=== PATIENT | female | born 1950 | race Caucasian/White ===

== ENCOUNTER 2021-02-13 18:26 | Emergency (ER) | payer MEDICARE ==
[2021-02-13 19:30] LABS: EOS # 0.1 (0.04-0.40); EOS % 0.9 % (1.0-5.0); HEMATOCRIT 43.7 % (37.0-47.0); HEMOGLOBIN 14.3 g/dL (12.5-16.0); LYMPH# 1.9 (1.50-4.00); MEAN CELL VOLUME 87 fl (78-100); MEAN CORPUSCULAR HEMOGLOBIN 29 pg (27-31); MEAN CORPUSCULAR HGB CONC 33 g/dL (33-37); MEAN PLATELET VOLUME 9.9 fl (7.4-10.4); MONO # 0.7 (0.20-0.80); NEU # 4.2 (1.40-6.50); PLATELET COUNT 228 K/mm3 (130-400); RED BLOOD COUNT 5.02 M/mm3 (4.10-5.30); WHITE BLOOD COUNT 6.8 K/mm3 (4.8-10.8)
[2021-02-13 19:41] LABS: ALBUMIN 4.2 g/dL (3.4-4.8); POTASSIUM 3.5 mmol/L (3.5-5.1); SODIUM 143 mmol/L (136-145)
[2021-02-13 19:42] LABS: CALCIUM 9.5 mg/dL (8.3-10.5)
[2021-02-13 19:43] LABS: GLUCOSE 107 mg/dL (65-105)
[2021-02-13 19:44] LABS: CARBON DIOXIDE 26 mmol/L (23-31); TOTAL PROTEIN 7.3 g/dL (6.2-8.1)
[2021-02-13 19:45] LABS: TOTAL BILIRUBIN 0.5 mg/dL (0.2-1.2)
[2021-02-13 19:48] LABS: ALCOHOL IN-HOUSE < 10 mg/dL (<10)
[2021-02-13 19:49] LABS: AST-SGOT 14 U/L (5-34)
[2021-02-13 19:50] LABS: ALT/SGPT 10 U/L (0-55)
[2021-02-13 19:54] LABS: ACETAMINOPHEN < 1 ug/mL
[2021-02-13 20:56] LABS: URINE APPEARANCE CLEAR; URINE COLOR YELLOW
[2021-02-13 20:57] LABS: URINE BILIRUBIN NEGATIVE (NEGATIVE); URINE BLOOD TRACE (NEGATIVE); URINE GLUCOSE NEGATIVE (NEGATIVE); URINE KETONE NEGATIVE (NEGATIVE); URINE LEUKOCYTE ESTERASE NEGATIVE (NEGATIVE); URINE MUCUS PRESENT (NOT PRESENT); URINE NITRATE NEGATIVE (NEGATIVE); URINE PROTEIN(semi-quant) TRACE mg/dL (NEGATIVE); URINE UROBILINOGEN NORMAL (NORMAL); URINE WBC 0-1 /hpf (0-3)
[2021-02-14] MEDS ORDERED: METOPROLOL SUCC50 M1 PO (00:49)
[2021-02-14 00:58] VITALS: BP 167/85
== END 2021-02-14 00:58 | disposition home or self-care (01) ==
LOC: ED 18:26
PROVIDERS: Family Medicine
DX: F32.9 Major depressive disorder, single episode, unspecified (principal); I10 Essential (primary) hypertension; Z90.710 Acquired absence of both cervix and uterus
CPT/HCPCS: J0360

== ENCOUNTER 2022-09-03 08:59 | Outpatient (RCR) | payer MEDICARE, OTHER ==
[~2022-09-03 08:59] MED LIST: METOPROLOL SUCC50 M1 PO
== END 2022-09-06 21:58 ==
LOC: OPPGERO 08:59
DX: F33.9 Major depressive disorder, recurrent, unspecified (principal)

== ENCOUNTER 2022-09-07 08:40 | Outpatient (RCR) | payer MEDICARE, OTHER | END 2022-10-06 15:31 | disposition still patient (30) | LOC: OPPGERO 08:40 | DX: F33.2 Major depressive disorder, recurrent severe without psychotic features (principal); E03.9 Hypothyroidism, unspecified; I10 Essential (primary) hypertension ==

== ENCOUNTER → 2022-09-15 | Outpatient (CLI) | payer MEDICARE, OTHER ==
[2022-09-15 09:03] LABS: ALBUMIN 4.1 g/dL (3.4-4.8); POTASSIUM 4.2 mmol/L (3.5-5.1)
[2022-09-15 09:04] LABS: CALCIUM 9.6 mg/dL (8.3-10.5)
[2022-09-15 09:05] LABS: TOTAL PROTEIN 7.3 g/dL (6.2-8.1)
[2022-09-15 09:07] LABS: HEMATOCRIT 43.6 % (37.0-47.0); HEMOGLOBIN 13.7 g/dL (12.5-16.0); RED CELL DISTRIBUTION WIDTH 13.6 % (11.5-14.5); TOTAL BILIRUBIN 0.5 mg/dL (0.2-1.2)
== END ==
LOC: LAB 08:17
PROVIDERS: Family Medicine
DX: Z13.220 Encounter for screening for lipoid disorders (principal); G30.9 Alzheimer's disease, unspecified; I10 Essential (primary) hypertension; E03.9 Hypothyroidism, unspecified; F32.A Depression, unspecified

== ENCOUNTER → 2022-10-12 | Outpatient (CLI) | payer MEDICARE | LOC: MAMMO 09:15 → RAD 09:15 | DX: M85.89 Other specified disorders of bone density and structure, multiple sites (principal); Z78.0 Asymptomatic menopausal state ==

== ENCOUNTER 2023-09-12 16:40 | Emergency (ER) | payer MEDICARE ==
[~2023-09-12] VITALS: Ht 157.5 cm; Wt 108.2 kg
[2023-09-12] MEDS ORDERED: NORVASC 10MG10 MG PO (17:11)
[2023-09-12] MEDS ORDERED: ADULT ASPIRIN R81 MG PO (17:12)
[2023-09-12] MEDS ORDERED: CLONAZEPAM0.5 M1 PO (17:12)
[2023-09-12] MEDS ORDERED: LISINOPRIL20 MG PO (17:12)
[2023-09-12] MEDS ORDERED: TOPROL XL 50MG50 MG PO (17:13)
[2023-09-12] MEDS ORDERED: NAMENDA10 MG PO (17:13)
[2023-09-12] MEDS ORDERED: VESICARE5 MG PO (17:16)
[2023-09-12] MEDS ORDERED: ZOLOFT 100MG100 MG PO (17:16)
[2023-09-12 17:36] LABS: BASO # 0.06 K/mm3 (0.02-0.10); EOS # 0.19 K/mm3 (0.04-0.40); EOS % 3.1 % (1.0-5.0); HEMATOCRIT 41.5 % (37.0-47.0); HEMOGLOBIN 13.3 g/dL (12.5-16.0); LYMPH# 1.17 K/mm3 (1.50-4.00); MEAN CELL VOLUME 87 fl (78-100); MEAN CORPUSCULAR HEMOGLOBIN 28 pg (27-31); MEAN CORPUSCULAR HGB CONC 32 g/dL (33-37); MEAN PLATELET VOLUME 9.9 fl (7.4-10.4); MONO # 0.55 K/mm3 (0.20-0.80); NEU # 4.23 K/mm3 (1.40-6.50); PLATELET COUNT 162 K/mm3 (130-400); RED BLOOD COUNT 4.77 M/mm3 (4.10-5.30); RED CELL DISTRIBUTION WIDTH 13.9 % (11.5-14.5); WHITE BLOOD COUNT 6.2 K/mm3 (4.8-10.8)
[2023-09-12 17:42] LABS: ALBUMIN 3.7 g/dL (3.4-4.8)
[2023-09-12 17:43] LABS: SODIUM 143 mmol/L (136-145)
[2023-09-12 17:44] LABS: CALCIUM 9.1 mg/dL (8.3-10.5)
[2023-09-12 17:45] LABS: GLUCOSE 115 mg/dL (65-105); TOTAL PROTEIN 6.8 g/dL (6.2-8.1)
[2023-09-12 17:46] LABS: CARBON DIOXIDE 26 mmol/L (23-31)
[2023-09-12 17:47] LABS: TOTAL BILIRUBIN 0.4 mg/dL (0.2-1.2)
[2023-09-12 17:50] LABS: AST-SGOT 18 U/L (5-34)
[2023-09-12 17:51] LABS: ALT/SGPT 17 U/L (0-55)
[2023-09-12 17:54] LABS: D-DIMER 2.29 mg/L FEU (0.15-0.50)
[2023-09-12 18:01] LABS: TROPONIN-I < 0.030 ng/mL (<0.030)
[2023-09-12 19:55] VITALS: BP 176/89
[2023-09-12] MEDS ORDERED: ACETAMINOPHEN500 M7 PO (20:54)
== END 2023-09-12 19:55 | disposition other institution (70) ==
LOC: ED 16:40
PROVIDERS: Physician Assistant
DX: J18.9 Pneumonia, unspecified organism (principal); R09.02 Hypoxemia; R79.89 Other specified abnormal findings of blood chemistry; W01.0XXA Fall on same level from slipping, tripping and stumbling without subsequent striking against object, initial encounter
CPT/HCPCS: J0696; J7050; Q9967

== ENCOUNTER 2023-09-15 13:20 | Inpatient (IN) | payer MEDICARE ==
[~2023-09-15] VITALS: Ht 157.5 cm; Wt 104.2 kg
[~2023-09-15 13:20] MED LIST changes: +ACETAMINOPHEN500 M7 PO; +ADULT ASPIRIN R81 MG PO; +CLONAZEPAM0.5 M1 PO; +LISINOPRIL20 MG PO; +NAMENDA10 MG PO; +NORVASC 10MG10 MG PO; +TOPROL XL 50MG50 MG PO; +VESICARE5 MG PO; +ZOLOFT 100MG100 MG PO
[2023-09-15 15:35] VITALS: BP 137/77
[2023-09-15 19:37] VITALS: BP 153/80
[2023-09-16 05:25] VITALS: BP 156/87
[2023-09-16 05:46] LABS: BASO # 0.02 K/mm3 (0.02-0.10); EOS # 0.18 K/mm3 (0.04-0.40); EOS % 3.3 % (1.0-5.0); HEMATOCRIT 41.6 % (37.0-47.0); HEMOGLOBIN 13.1 g/dL (12.5-16.0); LYMPH# 1.16 K/mm3 (1.50-4.00); MEAN CELL VOLUME 89 fl (78-100); MEAN CORPUSCULAR HEMOGLOBIN 28 pg (27-31); MEAN CORPUSCULAR HGB CONC 32 g/dL (33-37); MONO # 0.51 K/mm3 (0.20-0.80); NEU # 3.64 K/mm3 (1.40-6.50); PLATELET COUNT 152 K/mm3 (130-400); RED BLOOD COUNT 4.69 M/mm3 (4.10-5.30); RED CELL DISTRIBUTION WIDTH 13.7 % (11.5-14.5); WHITE BLOOD COUNT 5.5 K/mm3 (4.8-10.8)
[2023-09-16 06:01] LABS: CALCIUM 9.4 mg/dL (8.3-10.5)
[2023-09-16 17:14] VITALS: BP 137/80
[2023-09-17 05:37] VITALS: BP 160/76
[2023-09-17 18:01] VITALS: BP 181/81
[2023-09-18 05:55] VITALS: BP 167/75
[2023-09-18 17:19] VITALS: BP 143/75
[2023-09-19 05:54] VITALS: BP 177/69
[2023-09-19 17:10] VITALS: BP 151/78
[2023-09-20 05:46] VITALS: BP 137/75
[2023-09-20 17:15] VITALS: BP 134/76
[2023-09-21 05:58] VITALS: BP 158/81
[2023-09-21 17:11] VITALS: BP 135/71
[2023-09-22 06:14] LABS: URINE APPEARANCE CLOUDY; URINE BILIRUBIN NEGATIVE (NEGATIVE); URINE BLOOD 50 ery/uL (NEGATIVE); URINE COLOR YELLOW; URINE GLUCOSE NEGATIVE (NEGATIVE); URINE KETONE NEGATIVE (NEGATIVE); URINE LEUKOCYTE ESTERASE 2+ (NEGATIVE); URINE MUCUS PRESENT (NOT PRESENT); URINE NITRATE NEGATIVE (NEGATIVE); URINE PROTEIN(semi-quant) TRACE (NEGATIVE); URINE UROBILINOGEN NORMAL (NORMAL); URINE WBC 31-50 /hpf (0-3)
[2023-09-22 06:23] VITALS: BP 141/65
[2023-09-22 06:23] LABS: BASO # 0.05 K/mm3 (0.02-0.10); EOS # 0.29 K/mm3 (0.04-0.40); EOS % 4.6 % (1.0-5.0); HEMATOCRIT 41.1 % (37.0-47.0); LYMPH# 1.24 K/mm3 (1.50-4.00); MEAN CELL VOLUME 87 fl (78-100); MEAN CORPUSCULAR HEMOGLOBIN 28 pg (27-31); MEAN CORPUSCULAR HGB CONC 32 g/dL (33-37); MEAN PLATELET VOLUME 10.2 fl (7.4-10.4); MONO # 0.49 K/mm3 (0.20-0.80); NEU # 4.18 K/mm3 (1.40-6.50); PLATELET COUNT 153 K/mm3 (130-400); RED BLOOD COUNT 4.71 M/mm3 (4.10-5.30); RED CELL DISTRIBUTION WIDTH 13.5 % (11.5-14.5); WHITE BLOOD COUNT 6.3 K/mm3 (4.8-10.8)
[2023-09-22 07:06] LABS: CALCIUM 9.5 mg/dL (8.3-10.5)
[2023-09-22 18:33] VITALS: BP 135/75
[2023-09-23 06:14] VITALS: BP 130/68
[2023-09-23 18:31] VITALS: BP 157/80
[2023-09-24 06:11] VITALS: BP 165/88
[2023-09-24 17:20] VITALS: BP 167/81
[2023-09-25 05:31] VITALS: BP 137/74
[2023-09-25 17:52] VITALS: BP 138/73
[2023-09-26 05:38] VITALS: BP 145/84
[2023-09-26 17:15] VITALS: BP 121/74
[2023-09-27 05:40] VITALS: BP 144/74
[2023-09-27 17:06] VITALS: BP 151/82
[2023-09-28 05:20] VITALS: BP 132/72
[2023-09-28 08:13] LABS: BASO # 0.06 K/mm3 (0.02-0.10); EOS # 0.58 K/mm3 (0.04-0.40); EOS % 8.2 % (1.0-5.0); HEMATOCRIT 43.9 % (37.0-47.0); HEMOGLOBIN 13.6 g/dL (12.5-16.0); LYMPH# 1.16 K/mm3 (1.50-4.00); MEAN CELL VOLUME 89 fl (78-100); MEAN CORPUSCULAR HEMOGLOBIN 28 pg (27-31); MEAN CORPUSCULAR HGB CONC 31 g/dL (33-37); NEU # 4.79 K/mm3 (1.40-6.50); PLATELET COUNT 160 K/mm3 (130-400); RED BLOOD COUNT 4.93 M/mm3 (4.10-5.30); RED CELL DISTRIBUTION WIDTH 13.9 % (11.5-14.5); WHITE BLOOD COUNT 7.1 K/mm3 (4.8-10.8)
[2023-09-28 08:26] LABS: ALBUMIN 3.7 g/dL (3.4-4.8)
[2023-09-28 08:27] LABS: CALCIUM 9.3 mg/dL (8.3-10.5)
[2023-09-28 08:28] LABS: TOTAL PROTEIN 7.1 g/dL (6.2-8.1)
[2023-09-28 08:30] LABS: TOTAL BILIRUBIN 0.4 mg/dL (0.2-1.2)
[2023-09-28 15:30] VITALS: BP 122/75
[2023-09-29 05:12] VITALS: BP 149/75
[2023-09-29 17:51] VITALS: BP 130/65
[2023-09-30 05:50] VITALS: BP 153/75
[2023-09-30 17:23] VITALS: BP 150/89
[2023-10-01 05:42] VITALS: BP 107/55
[2023-10-01 17:10] VITALS: BP 144/79
[2023-10-02 05:40] VITALS: BP 137/74
[2023-10-02 17:31] VITALS: BP 133/78
[2023-10-03 05:10] VITALS: BP 145/76
[2023-10-03 18:09] VITALS: BP 132/78
[2023-10-03 22:17] LABS: URINE APPEARANCE HAZY; URINE BILIRUBIN NEGATIVE (NEGATIVE); URINE BLOOD NEGATIVE (NEGATIVE); URINE COLOR YELLOW; URINE GLUCOSE NEGATIVE (NEGATIVE); URINE KETONE NEGATIVE (NEGATIVE); URINE LEUKOCYTE ESTERASE 1+ (NEGATIVE); URINE NITRATE NEGATIVE (NEGATIVE); URINE PROTEIN(semi-quant) TRACE (NEGATIVE); URINE UROBILINOGEN NORMAL (NORMAL)
[2023-10-03 22:18] LABS: URINE WBC 31-50 /hpf (0-3)
[2023-10-04 05:44] VITALS: BP 126/57
[2023-10-04 17:29] VITALS: BP 154/76
[2023-10-05 05:38] VITALS: BP 179/77
[2023-10-05 07:53] LABS: BASO # 0.07 K/mm3 (0.02-0.10); EOS # 0.45 K/mm3 (0.04-0.40); EOS % 6.3 % (1.0-5.0); HEMATOCRIT 42.3 % (37.0-47.0); HEMOGLOBIN 13.4 g/dL (12.5-16.0); MEAN CELL VOLUME 88 fl (78-100); MEAN CORPUSCULAR HEMOGLOBIN 28 pg (27-31); MEAN CORPUSCULAR HGB CONC 32 g/dL (33-37); MEAN PLATELET VOLUME 10.6 fl (7.4-10.4); MONO # 0.49 K/mm3 (0.20-0.80); NEU # 5.17 K/mm3 (1.40-6.50); PLATELET COUNT 171 K/mm3 (130-400); RED BLOOD COUNT 4.83 M/mm3 (4.10-5.30); RED CELL DISTRIBUTION WIDTH 13.7 % (11.5-14.5); WHITE BLOOD COUNT 7.2 K/mm3 (4.8-10.8)
[2023-10-05 07:59] LABS: ALBUMIN 3.6 g/dL (3.4-4.8)
[2023-10-05 08:00] LABS: CALCIUM 9.3 mg/dL (8.3-10.5)
[2023-10-05 08:01] LABS: TOTAL PROTEIN 7.2 g/dL (6.2-8.1)
[2023-10-05 08:03] LABS: TOTAL BILIRUBIN 0.4 mg/dL (0.2-1.2)
[2023-10-05 13:35] VITALS: BP 159/72
== END 2023-10-05 14:50 | DRG 195 ==
LOC: MED/SURG 13:20
PROVIDERS: Family Medicine; Physician Assistant; ADMIT Nurse Practitioner
DX: J18.9 Pneumonia, unspecified organism (principal); R09.02 Hypoxemia; I10 Essential (primary) hypertension; F03.90 Unspecified dementia, unspecified severity, without behavioral disturbance, psychotic disturbance, mood disturbance, and anxiety; R26.89 Other abnormalities of gait and mobility; R53.81 Other malaise; Z66 Do not resuscitate; W18.30XD Fall on same level, unspecified, subsequent encounter; Z88.5 Allergy status to narcotic agent
CPT/HCPCS: J0696